=== PATIENT | male | born 1975 | race African-American/Black ===

== ENCOUNTER 2017-06-01 00:41 | Emergency (ER) | payer MEDICAID ==
[~2017-06-01] VITALS: Ht 182.9 cm; Wt 127.3 kg
[2017-06-01 00:59] VITALS: BP 154/89
[2017-06-01] MEDS ORDERED: LORazepam 2 MG/ML VIAL IM ONE (01:30)
[2017-06-01] MEDS ORDERED: DiphenhydrAMINE HCL 50 MG/ML VIAL IM ONE (01:30)
[2017-06-01] MEDS ORDERED: HALOPERIDOL LACTATE 5 MG/ML VIAL IM ONE (01:30)
== END 2017-06-01 01:16 | disposition home or self-care (01) ==
LOC: EMS 00:45 → EDBD 00:45 → EMS 01:16
DX: F19.10 Other psychoactive substance abuse, uncomplicated (principal); R45.1 Restlessness and agitation
CPT/HCPCS: 96372; 99284; J1200; J1630; J2060